=== PATIENT | male | born 1975 | race Caucasian/White ===

== ENCOUNTER 2019-12-22 18:15 | Emergency (ER) | payer MEDICAID ==
[~2019-12-22] VITALS: Ht 185.4 cm; Wt 84.1 kg
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
[2019-12-22] MEDS ORDERED: ondansetron 4mg rapidly disintigrating tab PO ONE (18:45)
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
--- NOTE | 2019-12-22 18:55 | NUR ---
Patient to CT via gurney.
--- NOTE | 2019-12-22 19:42 | NUR ---
Reported to MARK Braxton right wrist swelling limited range of motion order received for right wrist xray. Ice pack to right side of face.
--- NOTE | 2019-12-22 19:55 | NUR ---
xray right wrist completed resuts pending
--- NOTE | 2019-12-22 20:43 | NUR ---
re-evaluated by Nely FLORES right wrist. Velco splint ordered. Trying to get long term placement patient is tired. Unable to stay awake, unable to balance with cruthces.
--- NOTE | 2019-12-22 20:51 | NUR ---
Rupinder next of kin is also homeless will attempt to reach via telephone
--- NOTE | 2019-12-22 21:13 | NUR ---
[facility]. Patient very drowsy, alerted SAnette Braxton patient becoming more somulent. Reported patietn has been awake and has not slept in two days. Patient placed on monitor to continue closer monitoring.
[2019-12-22 21:15] VITALS: BP 111/85
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
== END 2019-12-23 05:15 | disposition home or self-care (01) ==
LOC: ER 18:16
DX: S02.31XA Fracture of orbital floor, right side, initial encounter for closed fracture (principal); S02.40EA Zygomatic fracture, right side, initial encounter for closed fracture; M25.531 Pain in right wrist; Z89.512 Acquired absence of left leg below knee; Z98.890 Other specified postprocedural states; Y04.2XXA Assault by strike against or bumped into by another person, initial encounter; Y93.89 Activity, other specified; Y92.89 Other specified places as the place of occurrence of the external cause; Y99.8 Other external cause status
CPT/HCPCS: 29125; 70450; 70486; 73110; 99285

== ENCOUNTER 2020-04-24 20:53 | Emergency (ER) | payer MEDICAID ==
[~2020-04-24] VITALS: Ht 185.4 cm; Wt 81.0 kg
[2020-04-24 23:11] LABS: BASOPHILS % (AUTO) 1.1 % (0-1); EOSINOPHILS # (AUTO) 0.1 X10'3 (0-0.9); EOSINOPHILS % (AUTO) 2.8 % (0-6); HEMATOCRIT 32.4 % (42.0-52.0); HEMOGLOBIN 11.1 g/dl (14.0-17.9); LYMPHOCYTES # (AUTO) 1.3 X10'3 (1.1-4.8); LYMPHOCYTES % (AUTO) 30.3 % (21-51); MEAN CORPUSCULAR HEMOGLOBIN 31.5 PG (27.0-31.0); MEAN CORPUSCULAR HGB CONC 34.3 g/dL (33.0-36.5); MEAN CORPUSCULAR VOLUME 91.8 FL (78-98); MEAN PLATELET VOLUME 7.9 FL (7.4-10.4); MONOCYTES # (AUTO) 0.4 X10'3 (0-0.9); MONOCYTES % (AUTO) 9.9 % (2-12); NEUTROPHILS # (AUTO) 2.4 X10'3 (1.8-7.7); NEUTROPHILS % (AUTO) 55.9 % (42-75); PLATELET COUNT 186 X10'3 (140-440); RED BLOOD COUNT 3.53 X10'6 (4.70-6.10); RED CELL DISTRIBUTION WIDTH 14.8 % (11.5-14.5); WHITE BLOOD COUNT 4.3 X10'3 (4.5-11.0)
[2020-04-24 23:25] LABS: ALANINE AMINOTRANSFERASE 133 U/L (12-78); ALBUMIN 3.3 G/DL (3.4-5.0); ALBUMIN/GLOBULIN RATIO 0.7 (1.1-1.5); ALKALINE PHOSPHATASE 128 IU/L (46-116); ANION GAP 6 (8-16); ASPARTATE AMINO TRANSFERASE 110 U/L (10-37); BILIRUBIN,TOTAL 0.9 MG/DL (0.1-1.0); BLOOD UREA NITROGEN 14 MG/DL (7-18); BUN/CREATININE RATIO 15.4 (5.4-32.0); CALCIUM 8.8 MG/DL (8.5-10.1); CHLORIDE 107 MMOL/L (99-107); CREATININE 0.91 MG/DL (0.60-1.10); POTASSIUM 3.5 MMOL/L (3.5-5.1); SODIUM 142 MMOL/L (135-145); TOTAL CARBON DIOXIDE 28.8 MMOL/L (24-32); TOTAL PROTEIN 7.9 G/DL (6.4-8.2); eGFR > 90 ML/MIN
[2020-04-24 23:26] LABS: GLUCOSE 98 MG/DL (70-104)
[2020-04-24] MEDS ORDERED: CEPH250T PO (23:29)
[2020-04-24 23:52] VITALS: BP 116/73
== END 2020-04-24 23:56 | disposition home or self-care (01) ==
LOC: ER 20:54
DX: L03.116 Cellulitis of left lower limb (principal); M79.89 Other specified soft tissue disorders; Z98.890 Other specified postprocedural states; Z79.2 Long term (current) use of antibiotics
CPT/HCPCS: 36415; 80053; 85025; 99283

== ENCOUNTER 2020-06-12 15:27 | Emergency (ER) | payer MEDICAID ==
[~2020-06-12] VITALS: Ht 182.9 cm; Wt 84.1 kg
[2020-06-12] MEDS ORDERED: LEVO100T9 PO (17:19)
[2020-06-12] MEDS ORDERED: GABA800T PO (17:19)
[2020-06-12] MEDS ORDERED: gabapentin 400mg capsule PO SCH (17:20)
[2020-06-12 17:50] VITALS: BP 106/74
== END 2020-06-12 17:49 | disposition home or self-care (01) ==
LOC: ER 15:28
DX: S00.81XA Abrasion of other part of head, initial encounter (principal); Z98.890 Other specified postprocedural states; Z60.2 Problems related to living alone; Z59.0 Homelessness; Z79.899 Other long term (current) drug therapy; X58.XXXA Exposure to other specified factors, initial encounter; Y93.89 Activity, other specified; Y92.89 Other specified places as the place of occurrence of the external cause; Y99.8 Other external cause status
CPT/HCPCS: 99283